=== PATIENT | male | born 1925 | race Caucasian/White ===

== ENCOUNTER → 2016-08-23 | Outpatient (CLI) | payer OTHER, BC ==
--- NOTE | 2016-08-23 13:58 | EKG ---
[address] [address] Measurements Intervals [place] Rate: 75 P: 61 ME: 254 QRS: -34 QRSD: 114 T: 48 QT: 369 QTc: 398 Interpretive Statements SINUS RHYTHM WITH PROLONGED ME INTERVAL LEFT AXIS DEVIATION INTRAVENTRICULAR CONDUCTION DELAY No previous ECG available for comparison Electronically Signed On 08-23-16 17:32:35 MST by Cem Ocampo [email or web address]
[2016-08-23 14:49] LABS: BASOPHILS # (AUTO) 0.02 10*3/UL; BASOPHILS % (AUTO) 0.2 % (0-1); HEMATOCRIT 40.8 % (42.0-52.0); HEMOGLOBIN 13.7 g/dL (14.0-18.0); IMM GRAN % (AUTO) 0.1 % (0-5); IMM GRAN# (AUTO) 0.01 10*3/UL; LYMPHOCYTES # (AUTO) 1.72 10*3/uL; LYMPHOCYTES % (AUTO) 18.5 % (10-50); MEAN CORPUSCULAR HEMOGLOBIN 32.2 PG (27-31); MEAN CORPUSCULAR HGB CONC 33.6 g/dL (33-37); MEAN PLATELET VOLUME 11.2 FL (7.4-12.2); MONOCYTES # (AUTO) 1.04 10*3/UL (0.3-0.8); MONOCYTES % (AUTO) 11.2 % (5-15); NEUTROPHILS # (AUTO) 6.33 10*3/UL; RDW COEFFICIENT OF VARIATION 13.8 % (11.5-14.5); RED BLOOD COUNT 4.26 10^6/uL (4.70-6.10); WHITE BLOOD COUNT 9.31 10^3/uL (4.8-10.8)
[2016-08-23 14:57] LABS: PLATELET MORPHOLOGY COMMENT NORMAL MORPHOLOGY (NORM)
[2016-08-23 15:14] LABS: BILIRUBIN,URINE NEGATIVE (NEG); CLARITY,URINE CLEAR (CLEAR); GLUCOSE, URINE (UA) NEGATIVE (NEG); LEUKOCYTE ESTERASE ,URINE TRACE (NEG); NITRATE,URINE NEGATIVE (NEG); OCCULT BLOOD,URINE SMALL (NEG); PROTEIN,URINE 100 mg/dl (NEG); UROBILINOGEN,URINE 0.2 mg/dL (0.2)
[2016-08-23 15:17] LABS: RBC,URINE 0 /hpf; SQUAMOUS EPITHELIAL CELL,UR RARE; URINE SAMPLE TYPE CLEAN CATCH URINE
[2016-08-23 15:21] LABS: BILIRUBIN,TOTAL 0.7 mg/dL (0.3-1.2); BUN/CREATININE RATIO 25.45 (6-20); CALCIUM 9.6 mg/dL (8.7-10.7); CREATININE 1.1 mg/dL (0.70-1.50); POTASSIUM 3.7 meq/L (3.8-5.2); TOTAL PROTEIN 6.9 g/dL (6.1-8.0)
[2016-08-23 15:26] LABS: PROTHROMBIN TIME 10.6 secs (9.7-11.4)
--- NOTE | 2016-08-23 21:08 | DI ---
PA /LATERAL CHEST X-RAY, 08/23/2016 1:40 PM : Clinical History: Lumbar stenosis. Previous Exam: August 08, 2007 There is no acute soft tissue or bony abnormality. Heart size is normal. Lungs are clear. Mediastinal structures are normal. There are no pulmonary nodules. IMPRESSION: Normal chest x-ray.
== END ==
LOC: MOB LAB 13:45
PROVIDERS: ATTEND Internal Medicine
DX: M48.06 Spinal stenosis, lumbar region (principal); I45.89 Other specified conduction disorders
CPT/HCPCS: 36415; 71020; 80053; 81001; 85025; 85610; 85730; 93005; 93010; 99214; G0463

== ENCOUNTER → 2016-08-30 | Outpatient (CLI) | payer OTHER, BC | LOC: MMPC 11:11 | PROVIDERS: ATTEND Internal Medicine | DX: M54.16 Radiculopathy, lumbar region (principal); I10 Essential (primary) hypertension; E03.9 Hypothyroidism, unspecified; D75.89 Other specified diseases of blood and blood-forming organs; Z01.818 Encounter for other preprocedural examination | CPT/HCPCS: 99214; G0463 ==

== ENCOUNTER → 2016-11-02 | Outpatient (CLI) | payer OTHER, BC | LOC: MMPC 11:11 | PROVIDERS: ATTEND Internal Medicine | DX: I10 Essential (primary) hypertension (principal); E03.9 Hypothyroidism, unspecified; E78.5 Hyperlipidemia, unspecified | CPT/HCPCS: 99213; G0463 ==